=== PATIENT | female | born 1950 | race Caucasian/White ===

== ENCOUNTER 2017-02-25 17:45 | Emergency (ER) | payer BC, MEDICARE ==
[2017-02-25] MEDS ORDERED: Ibuprofen TAB* 800 MG PO ONE (19:23)
--- NOTE | 2017-02-25 19:48 | RAD ---
Indication: Neck pain. CT of the cervical spine was obtained in the axial plane. Sagittal and coronal reconstructed images were obtained. The skull base demonstrates no fracture. Mastoid air cells are well aerated. The C1 ring is intact. The vertebral bodies appear normal in height. No fracture is identified. At C2-C3 and C3-C4 no disc protrusion is identified. No central foraminal stenosis is noted. At C4-C5 spondylitic ridge flattens the thecal sac. No central or foraminal stenosis is noted. At C5-C6 spondylitic ridge is noted. No central or foraminal stenosis is noted. At C6-C7 spondylitic ridge flattens the thecal sac. No central foraminal stenosis is noted. At C7-T1 and T1-T2 disc space appears normal. IMPRESSION: DEGENERATIVE DISC DISEASE AT C4-C5, C5-C6 AND C6-C7 WITHOUT EVIDENCE OF FRACTURE.
--- NOTE | 2017-02-25 20:15 | RAD ---
Indication: Facial injury. CT of the facial bones was obtained in the axial plane. Sagittal and coronal reconstructed images were obtained. The mandible demonstrates no evidence of fracture. Mandibular condyles are unremarkable. Zygomatic arch is unremarkable. The pterygoid plates and maxilla show no fracture. Paranasal sinuses are clear. Orbits are intact without evidence of fracture. Mastoid air cells are otherwise unremarkable The visualized cervical spine is otherwise unremarkable. IMPRESSION: No fracture of the facial bones is noted.
[2017-02-25 20:17] VITALS: BP 134/54
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
== END 2017-02-25 20:26 | disposition home or self-care (01) ==
LOC: ED 17:45
DX: S16.1XXA Strain of muscle, fascia and tendon at neck level, initial encounter (principal); M79.602 Pain in left arm; F17.210 Nicotine dependence, cigarettes, uncomplicated; V49.9XXA Car occupant (driver) (passenger) injured in unspecified traffic accident, initial encounter; Y93.9 Activity, unspecified; Y92.9 Unspecified place or not applicable
CPT/HCPCS: 70486; 72125; 99282; A9270-GY

== ENCOUNTER 2017-08-24 11:22 | Emergency (ER) | payer MEDICARE, BC ==
[2017-08-24 11:57] VITALS: BP 131/50
--- NOTE | 2017-08-24 13:33 | UC ---
Respiratory Complaint HPI - HPI Summary HPI Summary: 67 yo female with cough/wheeze x 5 days some sinus congestion no f/c some fatigue and dyspnea hx of bronchitis often uses inhalers - History of Current Complaint Chief Complaint: UCRespiratory Stated Complaint: RESPIRATORY,SOB 4 DAYS Time Seen by Provider: 08/24/17 13:26 Hx Obtained From: Patient Onset/Duration: Gradual Onset Timing: Constant Severity Initially: Mild Severity Currently: Moderate Pain Intensity: 0 Pain Scale Used: 0-10 Numeric Character: Cough: Nonproductive Aggravating Factors: Exertion Alleviating Factors: Nothing Associated Signs And Symptoms: Positive: Wheezing, Nasal Congestion - Allergies/Home Medications Allergies/Adverse Reactions: Allergies Allergy/AdvReac Type Severity Reaction Status Date / Time No Known Allergies Allergy Verified 08/24/17 11:59 Home Medications: Home Medications Diphenhydramine HCl [Benadryl Allergy] 50 mg PO BID PRN 08/24/17 [History Confirmed 08/24/17] PMH/Surg Hx/FS Hx/Imm Hx Previously Healthy: Yes Respiratory History: Bronchitis - Surgical History Surgical History: Unable to Obtain/Confirm - Social History Alcohol Use: None Substance Use Type: None Smoking Status (MU): Light Every Day Tobacco Smoker Review of Systems Constitutional: Negative Skin: Negative Eyes: Negative ENT: Negative Respiratory: Cough Cardiovascular: Negative Gastrointestinal: Negative Genitourinary: Negative Motor: Negative Neurovascular: Negative Musculoskeletal: Negative Neurological: Negative Psychological: Negative Is Patient Immunocompromised?: No All Other Systems Reviewed And Are Negative: Yes Physical Exam Triage Information Reviewed: Yes Appearance: Well-Appearing, No Pain Distress, Well-Nourished, Thin Vital Signs: Initial Vital Signs Temp 99.2 F 08/24/17 11:51 Pulse 83 08/24/17 11:51 Resp 20 08/24/17 11:51 BP 131/50 08/24/17 11:51 Pulse Ox 97 08/24/17 11:51 Vital Signs Reviewed: Yes Eyes: Positive: Conjunctiva Clear ENT: Positive: Hearing grossly normal, Nasal congestion, TMs normal, Sinus tenderness. Negative: Trismus, Muffled voice, Hoarse voice Neck: Positive: Supple, Nontender, No Lymphadenopathy Respiratory: Positive: No respiratory distress, No accessory muscle use, Wheezing Cardiovascular: Positive: RRR, No Murmur Musculoskeletal: Positive: ROM Intact, No Edema Neurological Exam: Normal Psychological Exam: Normal Skin Exam: Normal UC Diagnostic Evaluation - Laboratory O2 Sat by Pulse Oximetry: 97 - normal/not hypoxic Respiratory Course/Dx - Differential Dx/Diagnosis Provider Diagnoses: acute bronchitis with bronchospasm Discharge - Discharge Plan Condition: Stable Disposition: HOME Prescriptions: Albuterol HFA INHALER* [Ventolin HFA Inhaler*] 2 puff INH QID #1 mdi Amoxicillin/Clavulanate TAB* [Augmentin TAB 875*] 875 mg PO BID #14 tab Prednisone [Deltasone] 40 mg PO DAILY #10 tab Patient Education Materials: Acute Bronchitis (ED) Referrals: Selin Marsh MD [Primary Care Provider] - 3 Days (recheck in 3-4 days if not better)
== END 2017-08-24 13:42 | disposition home or self-care (01) ==
LOC: UCCORT 11:22
DX: J20.9 Acute bronchitis, unspecified (principal); F17.210 Nicotine dependence, cigarettes, uncomplicated
CPT/HCPCS: 99212; G0463

== ENCOUNTER 2019-10-06 10:29 | Emergency (ER) | payer MEDICARE, BC ==
[2019-10-06 12:31] VITALS: BP 113/56
--- NOTE | 2019-10-06 12:51 | UC ---
Throat Pain/Nasal Zac[place] HPI - HPI Summary HPI Summary: Patient is a 69yo female presenting with nasal congestion x2 weeks that has worsened over the last week. Patient notes sinus tenderness/pressure, and frontal headaches. Also notes yellow nasal discharge. Notes PND and mild sore throat. Denies cough. Denies fever and chills. Taking otc decongestant and cold meds without relief. - History of Current Complaint Chief Complaint: UCGeneralIllness Stated Complaint: SINUS CONCERN Hx Obtained From: Patient Pain Intensity: 8 - Allergies/Home Medications Allergies/Adverse Reactions: Allergies Allergy/AdvReac Type Severity Reaction Status Date / Time No Known Allergies Allergy Verified 10/06/19 12:26 Home Medications: Home Medications Albuterol HFA INHALER* [Ventolin HFA Inhaler*] 1 - 2 puff INH Q6H PRN #1 mdi [Rx] Amoxicillin/Clavulanate TAB* [Augmentin TAB 875*] 875 mg PO BID #10 tab [Rx] Fluticasone NASAL SPRAY 50MCG* [Flonase NASAL SPRAY 50MCG*] 2 spray BOTH NARES DAILY PRN #1 btl 10/06/19 [Rx] Pseudoephedrine TAB* [Sudafed TAB*] 30 mg PO Q6H PRN 10/06/19 [History Confirmed 10/06/19] guaiFENesin ER TAB [Mucinex*] 600 mg PO ONCE 10/06/19 [History Confirmed ] PMH/Surg Hx/FS Hx/Imm Hx - Surgical History Surgical History: Yes Surgery Procedure, Year, and Place: tonsillectomy. appy. [facility] - Family History Known Family History: Positive: Non-Contributory - Social History Alcohol Use: None Substance Use Type: None Smoking Status (MU): Former Smoker When Did the Patient Quit Smoking/Using Tobacco: 2019 Review of Systems All Other Systems Reviewed And Are Negative: Yes Constitutional: Positive: Negative ENT: Positive: Sore Throat, Nasal Discharge - yellow, Sinus Congestion, Sinus Pain/Tenderness Respiratory: Positive: Negative Cardiovascular: Positive: Negative Gastrointestinal: Positive: Negative Musculoskeletal: Positive: Negative Neurological/Mental Status: Positive: Headache - "sinus headache" Physical Exam - Summary Physical Exam Summary: Vital Signs Reviewed: Yes A+Ox3, no distress Eyes: Conjunctiva Clear ENT: Hearing grossly normal, TM x 2 clear, +maxillary/frontal sinus tenderness, +PND, moist, uvula midline, no exudate, no erythema Neck: Positive: Supple Respiratory: Positive: No respiratory distress, No accessory muscle use + CTA throughout no w/r Cardiovascular: RRR nl s1, s2 no m/r Musculoskeletal Exam: DICKSON x 4 without difficulty Neurological: Positive: Alert Psychological: Positive: age appropriate behavior Skin: Positive: no rash, no ecchymosis Vital Signs: Initial Vital Signs Temp 99.1 F 10/06/19 12:28 Pulse 72 10/06/19 12:28 Resp 14 10/06/19 12:28 BP 113/56 10/06/19 12:28 Pulse Ox 98 10/06/19 12:28 Throat Pain/Nasal Course/Dx - Course Course Of Treatment: Patient presenting with worsening nasal congestion and purulent nasal discharge x2 weeks. I treated patient with augmentin and flonase for acute sinusitis. Patient also requested inhaler for "mild shortness of breath throughout illness. " I provided patient with prescription for albuterol inhaler as well. Instructed to follow up with pcp or care connections if symptoms persist. Patient voiced understanding and agreed with treatment plan. - Differential Dx/Diagnosis Differential Diagnosis/HQI/PQRI: Pharyngitis, Sinusitis, URI Provider Diagnosis: Acute sinusitis, PND (post-nasal drip) Discharge ED - Sign-Out/Discharge Documenting (check all that apply): Patient Departure All imaging exams completed and their final reports reviewed: No Studies - Discharge Plan Condition: Stable Disposition: HOME Referrals: Ashlyn Bruce PA [Primary Care Provider] - - Billing Disposition and Condition Condition: STABLE Disposition: Home
== END 2019-10-06 13:13 | disposition home or self-care (01) ==
LOC: UCCORT 10:29
DX: R09.82 Postnasal drip (principal); J01.90 Acute sinusitis, unspecified; Z87.891 Personal history of nicotine dependence
CPT/HCPCS: 99212; G0463